=== PATIENT | female | born 1995 | race Two or more races ===

== ENCOUNTER 2019-02-28 05:10 | Emergency (ER) | payer MEDICAID, OTHER ==
[~2019-02-28] VITALS: Ht 157.5 cm; Wt 85.2 kg
[2019-02-28 05:14] VITALS: BP 106/75
--- NOTE | 2019-02-28 05:36 | NUR ---
CONTACT WITH PT. 24 YR OLD FEMALE HERE WITH C/O PAIN/REDNESS/ODOR TO INCISION LINE. APPROXIMATED WITH JESS. REDNESS TO RIGHT SIDE, STRONG ODOR NOTED. PT DID NOT KEEP OB F/U APPT R/T WEATHER AND HAS NOT MADE A F/U APPT R/T "DIFFICULTY WALKING"
[2019-02-28] MEDS ORDERED: NEOSPORIN OINT. PKT 1 PACKET ONE (05:50)
--- NOTE | 2019-02-28 05:51 | NUR ---
URINE SPECIMEN SENT TO LAB
[2019-02-28 06:05] LABS: CULTURE INDICATED? YES; MICROSCOPIC INDICATED
[2019-02-28] MEDS ORDERED: CEFTRIAXONE 1,000 MG ONE (06:29)
[2019-02-28] MEDS ORDERED: LIDOCAINE-MPF 1%, 5ML ONE (06:29)
[2019-02-28] MEDS ORDERED: CEFTRIAXONE 1,000 MG IM ONE (06:30)
--- NOTE | 2019-02-28 06:57 | NUR ---
PT LAYING ON GURNEY, NO DISTRESS NOTED. NO ADVERSE EFFECT TO IM ABX NOTED. NO IV TO DC. REVIEWED DC INSTRUCTIONS WITH PT, UNDERSTANDING VERBALIZED. PT LEFT AMB, GAIT STEADY.
== END 2019-02-28 06:59 | disposition home or self-care (01) ==
LOC: ED 06:41
DX: N30.00 Acute cystitis without hematuria (principal); L03.311 Cellulitis of abdominal wall; Z48.01 Encounter for change or removal of surgical wound dressing; Z90.710 Acquired absence of both cervix and uterus
CPT/HCPCS: 81001; 87086; 96372; 99283; J0696